=== PATIENT | female | born 1955 | race Caucasian/White ===

== ENCOUNTER 2024-01-13 10:56 | Outpatient (RCR) | payer MEDICARE, OTHER, SELFPAY | END 2024-01-13 23:59 | disposition home or self-care (01) | LOC: RPT 10:56 | PROVIDERS: ATTENDING PHYSICIAN Orthopaedic Surgery; FAMILY PHYSICIAN Family Medicine | DX: M75.42 Impingement syndrome of left shoulder (principal); M79.602 Pain in left arm; M47.812 Spondylosis without myelopathy or radiculopathy, cervical region; M25.512 Pain in left shoulder; M54.12 Radiculopathy, cervical region; Z98.890 Other specified postprocedural states | CPT/HCPCS: 97010; 97110; 97162; 97535 ==

== ENCOUNTER 2024-01-20 12:50 | Outpatient (RCR) | payer MEDICARE, OTHER, SELFPAY | END 2024-01-20 23:59 | disposition home or self-care (01) | LOC: RPT 12:50 | PROVIDERS: ATTENDING PHYSICIAN Orthopaedic Surgery; FAMILY PHYSICIAN Family Medicine | DX: M75.42 Impingement syndrome of left shoulder (principal); M79.602 Pain in left arm; M47.812 Spondylosis without myelopathy or radiculopathy, cervical region; Z98.890 Other specified postprocedural states; M54.12 Radiculopathy, cervical region | CPT/HCPCS: 97010; 97110 ==

== ENCOUNTER → 2024-01-28 18:16 | Outpatient (REF) | payer MEDICARE, OTHER, SELFPAY | LOC: MRI 3T 18:16 | PROVIDERS: ATTENDING PHYSICIAN Orthopaedic Surgery; FAMILY PHYSICIAN Family Medicine | DX: M75.42 Impingement syndrome of left shoulder (principal) | CPT/HCPCS: 73221 ==

== ENCOUNTER → 2024-02-24 06:22 | Outpatient (REF) | payer MEDICARE, OTHER, SELFPAY ==
[2024-02-24 07:52] LABS: Hematocrit 41.2 % (37.0-47.0); Hemoglobin 14.1 g/dL (12.0-16.0); Mean Corp Hgb Conc. 34.2 g/dL (33.0-37.0); Mean Corpuscular Hgb 30.4 pg (27.0-31.0); Mean Corpuscular Volume 88.8 fL (81.0-99.0); Mean Platelet Volume 10.7 fL (7.4-10.4); Platelet Count 193 10^3/uL (130-400); Red Blood Cell Count 4.64 10^6/uL (4.20-5.40); Red Cell Dist. Width 14.1 % (11.5-14.5); White Blood Cell Count 6.1 10^3/uL (4.8-10.8)
[2024-02-24 07:57] LABS: Blood Urea Nitrogen 36 mg/dl (7-17); Calcium 9.9 mg/dl (8.4-10.2); Carbon Dioxide 21 mmol/L (22-30); Chloride 102 mmol/L (98-107); Glucose 108 mg/dl (70-99); Sodium 141 mmol/L (135-145); eGFR > 60.00
== END ==
LOC: SDSPAT 06:22
PROVIDERS: ATTENDING PHYSICIAN Specialist; FAMILY PHYSICIAN Family Medicine
DX: Z01.818 Encounter for other preprocedural examination (principal)
CPT/HCPCS: 36415; 80048; 85027; 93005

== ENCOUNTER 2024-02-27 06:26 | Day surgery (SDC) | payer MEDICARE, OTHER, SELFPAY ==
[2024-02-24 10:02] VITALS: BMI 35.6
[2024-02-27] VITALS (13 sets, daily range): BP systolic 124–192; BP diastolic 71–105; BMI 35.6
[2024-02-27] MEDS: NORMOSOL-R/PLASMALYTE-A 1000 IV (11:29)
[2024-02-27] MEDS: TYLENOL 1000 MG PO (11:30)
[2024-02-27] MEDS: CELEBREX 200 MG PO (11:31)
[2024-02-27] MEDS: TRANDATE 10 MG IV (17:15)
== END 2024-02-27 17:38 | disposition home or self-care (01) ==
LOC: SDS 06:26
PROVIDERS: ATTENDING PHYSICIAN Specialist; FAMILY PHYSICIAN Family Medicine
DX: M75.102 Unspecified rotator cuff tear or rupture of left shoulder, not specified as traumatic (principal); M75.42 Impingement syndrome of left shoulder
CPT/HCPCS: 29827; 29826; C1713

== ENCOUNTER 2024-03-31 07:19 | Emergency (ER) | payer MEDICARE, OTHER, SELFPAY ==
[2024-03-31 07:22] VITALS: BP 195/99
--- NOTE | 2024-03-31 08:14 | ED.GENMED ---
History of Present Illness
General
Chief Complaint: Dental Problem
Source: patient
Exam Limitations: none
Time Seen by Provider: 03/31/24 07:51
Nursing documentation reviewed up to this point in time: agreed with
History of Present Illness
History of Present Illness:
69-year-old female has had a right upper tooth pain for the past several days, saw her dentist yesterday and started on amoxicillin 875 mg twice daily of which she has had a total of 2 doses so far. She presents now with increasing pain and
swelling of the right cheek. States pain is 7/10. Denies difficulty swallowing or breathing. Denies f/c/n/v
Past History
Past History
ED Past Medical History: Cancer (breast CA), Fibromyalgia, GERD and Hypercholesterolemia
ED Past Surgical History: Gynecological and Orthopedic
Social History
Tobacco: Non-smoker
Personal:
Living: with family
Review of Systems
Review of Systems
Allergies reviewed?: Yes
All Other Systems: ROS reviewed and negative except as documented in HPI and ROS
Constitutional: Denies fever or chills
EENT: Reports mouth swelling (upper right gum)
Respiratory: Denies trouble breathing
ABD/GI: Denies nausea or vomiting
Skin: Reports no symptoms
Neurological: Reports no symptoms
Phy Exam
Physical Exam
Physical Exam:
GENERAL: No acute distress. A&Ox3.
CONSTITUTIONAL: Afebrile.
EYES: PERRL, conjunctivae normal
Neck: Supple, no lymphadenopathy
ENMT: moist mucus membranes, Pharynx nl. Palpable abscess left upper gum, swelling left cheek. No trismus
RESPIRATORY: Regular respirations, nonlabored, lungs clear.
CARDIOVASCULAR: Regular rate and rhythm, no murmurs, no rubs.
GI: Soft, nontender
MUSCULOSKELETAL: Moves with ease. Well perfused.
SKIN: Warm, dry, pink
PSYCH: Normal mood and affect. Well kept, interactive and appropriate
NEUROLOGIC: Awake, alert and oriented. No focal neurological deficits
Course
Vital Signs
Initial and Last Documented VS:
Initial Vital Signs
Temp Pulse Resp BP Pulse Ox
98.4 F 96 16 195/99 95
03/31/24 07:22 03/31/24 07:22 03/31/24 07:22 03/31/24 07:22 03/31/24 07:22
Last Documented Vital Signs
Temp Pulse Resp BP Pulse Ox
98.4 F 92 16 137/70 95
03/31/24 07:22 03/31/24 09:07 03/31/24 07:22 03/31/24 09:07 03/31/24 07:22
Procedures
Incision/Drainage/Joint Aspiration
Right upper gum:
Anethesia: 1% Lidocaine with Epi
Type of procedure: incise and drain
Nature of site: abscess
Description of abscess: less than 3cm
How much fluid was obtained?: small amount
Fluid description: purulent
Treatment: left open for drainage
MDM/Problems Addressed
Differential Diagnosis Includes:
tooth infection, abscess
MDM/Problems Addressed:
69-year-old female has had a right upper tooth pain for the past several days, saw her dentist yesterday and started on amoxicillin 875 mg twice daily of which she has had a total of 2 doses so far. She presents now with increasing pain and
swelling of the right cheek. States pain is 7/10. Denies difficulty swallowing or breathing. Denies f/c/n/v
Palpable tender abscess buccal mucosal border above teeth 4 and 5
Pt tolerated I & D well. About 1 ml pus aspirated, small incision made and drained, gauze pressure pads applied. Bleeding stopped by discharge.
BP rechecked by me: 137/70
Will f/u with her dentist
*Critical Care Note
Total Time (30-74mins, 75-104mins- exclusive of procedures): Not Applicable
ED Attending Note
-
Portions of this chart may have been created with voice recognition software.� Occasional wrong word or��sound alike� substitutions may have occurred due to the inherent limitations of voice recognition software.
Discharge Plan
Departure
Patient Disposition: Home (Routine Discharge)
Date of Disposition: 03/31/24
Time of Disposition: 08:42
Patient with high blood pressure during this ER visit?: No
Condition: Good
Discharge Problem:
Dental abscess
Instructions: Tooth Abscess (DC)
Prescriptions:
No Action
cyclobenzaprine 10 mg tablet
10 mg PO QPM
omeprazole 40 mg capsule,delayed release(DR/EC)
40 mg PO DAILY
citalopram 20 mg tablet
20 mg PO DAILY
Medical Marijuana
1 cap PO HSPRN PRN (Reason: sleep,pain)
lorazepam 0.5 mg Tablet
0.5 mg PO BIDPRN PRN (Reason: anxiety)
rosuvastatin 5 mg Tablet
5 mg PO QPM
enalapril maleate 5 mg Tablet
5 mg PO HS
famotidine [Pepcid] 40 mg Tablet
40 mg PO HS
amoxicillin 875 mg Tablet
875 mg PO BID
acetaminophen [Tylenol] 325 mg Tablet
650 mg PO Q4HPRN PRN (Reason: mild pain)
Referrals:
Your, Dentist [Other] - Keep scheduled appt
Lana Gonzalez MD [Family Provider] -
Activity Restrictions/Additional Instructions:
As we discussed, continue your amoxicillin and your next dental appointment.
Rinse and spit with warm salt water 3 times a day for the next 2 days. Rinse and spit with plain water after eating for the next 3 days
Tylenol as needed for pain, return here immediately for increasing swelling, pain, fever or feeling sicker in any way.
Interventions
Interventions:
*Risk Screen - Suicide Last Done: 03/31/24 07:22
*General Assessment Last Done: 03/31/24 07:22
*Neglect/Abuse Screening Last Done: 03/31/24 07:22
ED- Fall Risk Assessment Last Done: 03/31/24 09:10
*ED COVID-19 Vaccine History Last Done: 03/31/24 09:10
*Nursing Disposition Last Done: 03/31/24 09:10
Discharge Date and Time
Discharge Date/Time: 03/31/24 09:11
Print Language: INDIAN
[2024-03-31 09:07] VITALS: BP 137/70
== END 2024-03-31 09:11 | disposition home or self-care (01) ==
LOC: EMR 07:19
PROVIDERS: EMERGENCY PHYSICIAN Student in an Organized Health Care Education/Training Program; FAMILY PHYSICIAN Family Medicine
DX: K04.7 Periapical abscess without sinus (principal); M79.7 Fibromyalgia; E78.00 Pure hypercholesterolemia, unspecified; K21.9 Gastro-esophageal reflux disease without esophagitis
CPT/HCPCS: 99282

== ENCOUNTER 2024-04-15 09:32 | Outpatient (RCR) | payer MEDICARE, OTHER, SELFPAY | END 2024-04-15 23:59 | disposition home or self-care (01) | LOC: RPT 09:32 | PROVIDERS: ATTENDING PHYSICIAN Physician Assistant Surgical; FAMILY PHYSICIAN Family Medicine | DX: M25.512 Pain in left shoulder (principal); Z98.890 Other specified postprocedural states | CPT/HCPCS: 97010; 97110; 97140; 97162; 97535 ==

== ENCOUNTER 2024-05-12 13:07 | Outpatient (RCR) | payer MEDICARE, OTHER, SELFPAY | END 2024-05-12 23:59 | disposition home or self-care (01) | LOC: RPT 13:07 | PROVIDERS: ATTENDING PHYSICIAN Physician Assistant Surgical; FAMILY PHYSICIAN Family Medicine | DX: Z47.89 Encounter for other orthopedic aftercare (principal); M25.512 Pain in left shoulder; Z73.6 Limitation of activities due to disability; M62.81 Muscle weakness (generalized) | CPT/HCPCS: 97010; 97110 ==

== ENCOUNTER → 2024-06-17 13:58 | Outpatient (REF) | payer MEDICARE, OTHER, SELFPAY | LOC: WDC 13:58 | PROVIDERS: ATTENDING PHYSICIAN Nurse Practitioner Primary Care; FAMILY PHYSICIAN Family Medicine | DX: Z12.31 Encounter for screening mammogram for malignant neoplasm of breast (principal) | CPT/HCPCS: 77063; 77067 ==

== ENCOUNTER 2024-07-11 13:04 | Inpatient (IN) | payer MEDICARE, OTHER, SELFPAY ==
[2024-07-11] VITALS (14 sets, daily range): BP systolic 121–215; BP diastolic 53–116; BMI 38.2; BMI 37.6
[2024-07-11 09:48] LABS: Urine Albumin Negative (Neg - Trace); Urine Bilirubin Negative (Negative); Urine Character Clear (Clear); Urine Color Yellow; Urine Glucose Negative (Negative); Urine Ketone Negative (Negative); Urine Leukocyte Trace (Negative); Urine Nitrite Negative (Negative); Urine Occult Blood 1+ (Negative); Urine Urobilinogen Negative (Neg - 1+); Urine pH 6.5 (5.0-9.0)
--- NOTE | 2024-07-11 09:49 | ED.GENMED ---
History of Present Illness
General
Chief Complaint: Change in Mental Status
Source: patient
Time Seen by Provider: 07/11/24 09:20
History of Present Illness
History of Present Illness:
69-year-old female presents to the emergency room with her spouse for evaluation of confusion. Patient evidently woke up this morning at her baseline. The patient and her are preparing to go out to breakfast to meet family. Patient's
walk the dog and when she came back the patient was confused had no idea why she was getting dressed. She had no recollection of a refrigerator being delivered yesterday or why there were other objects around the house. Patient denies headache,
chest pain, focal weakness or focal numbness. Patient is tearful because she realized that she is not remembering these things. No history of any cognitive decline per the patient's . No new medication. Patient does take medication for pain
and uses medical marijuana but denies using any of these things this morning.
Past History
Past History
ED Past Medical History: Cancer (breast CA), Fibromyalgia, GERD and Hypercholesterolemia
ED Past Surgical History: Gynecological and Orthopedic
Social History
Tobacco: Non-smoker
Personal:
Living: with family
Phy Exam
Physical Exam
Physical Exam:
General: Awake, Alert, Oriented X3. No acute distress.
Vitals: unremarkable
Head: Atraumatic
Eyes: Pupils equal, EOMI
Throat: Airway intact, no exudates
Neck: Trachea midline
Lungs: Clear and equal b/l
Heart: Regular rate, no murmurs
Abd: Soft, Nontender, No pulsatile mass
Neuro: Cranial nerves intact, muscle strength equal bilaterally, cerebellar exam normal
Skin: Warm, dry, no rash
Extremities: pulses equal b/l, no edema
Course
Orders/Labs/Results
Orders:
Orders
07/11/24 09:42
Urinalysis Reflex To Culture Urgent
Date Specimen was Collected: 07/11/24
Time Specimen was Collected: 09:41
Urine Microscopic Reflex Cult Urgent
07/11/24 09:49
Electrocardiogram (*1) Stat
Reason for Study: Other
Other Reason for Exam: neuro symptoms
CT Head W/o Iv Contrast Urgent
Comment:
Reason For Exam: altered mental status
Bedside Glucose- Treatment ONCE
Cardiac Monitoring- Treatment ONCE
EKG- Treatment ONCE
07/11/24 Lunch
Regular
At Your Request: Limited Participation
Does patient need a safe tray?: No
07/11/24 10:06
Cardiovascular Evaluation Urgent
Complete Blood Count/With Diff Urgent
Comprehensive Metabolic Panel Urgent
Erythrocyte Sed Rate Urgent
Comment: ADD ON
Ferritin Urgent
Comment: ADD ON
Folate Urgent
Comment: ADD ON
TSH Reflex To Free T4 Urgent
Comment: ADD OD
Vitamin B12 Urgent
Comment: ADD ON
07/11/24 10:45
Labetalol HCl [Trandate] 10 mg IV NOW STA
07/11/24 12:30
Aspirin Enteric Coated 325 mg PO NOW STA
Lorazepam [Ativan] 1 mg PO ONCE ONE
07/11/24 12:31
MR Brain Without Contrast Routine
Comment:
Reason For Exam: ? stroke
Recent pill cam endoscopy?: No
07/11/24 12:47
Admit/Transfer Patient As Directed
Co-Sign Provider:
Level of Care: Inpatient admission
Assign to:: Medical/Surgical
Physician / Group: Ajith Sanchez
Diagnosis: TGA vs Encephalopathy
Reason for Hospitalization: TGA vs Encephalopathy
Expected length of stay greater than two midnights?: Yes
ELOS- Estimated Length of Stay in days: 2
I certify the patient meets the requirements for IP care: Yes
07/11/24 12:48
PRN Pain Medication Management As Directed
May give lesser potent ordered pain med per pt: Yes
preference::
Protocol:: Medication orders for pain may be administered in a
manner that supports deferring to patient preference
when the pt is:
- Requesting an ordered lesser potent pain medication.
Least to most potent pain medications are defined
as: acetaminophen < NSAID < tramadol < opioids
(morphine, oxycodone, hydromorphone).
- Requesting a lesser dose of the same medication IF
ORDERED.
- Requesting a less intrusive route of administration
if both routes are prescribed by the provider (PO <
IV).
07/11/24 12:50
Code Status As Directed
Resuscitation Status: Full Code
07/11/24 13:00
NIFEdipine EXTENDED RELEASE [Procardia Xl (Extended Release)] 30 mg PO DAILY
07/11/24 15:20
Acetaminophen [Tylenol] 650 mg PO Q4HPRN PRN
Bisacodyl [Dulcolax] 10 mg RECTAL [id number] PRN
Docusate W/Senna [Senokot-S] 1 tablet PO BIDPRN PRN
Polyethylene Glycol Powder [Miralax] 17 grams PO DAILYPRN PRN
07/11/24 15:20
Activity As Directed
Activity Level: With Assistance
Pneumatic Compression Sleeves As Directed
Type: Knee high
Vital Signs As Directed
Frequency: Per unit guidelines
DX Deep Vein Thrombosis Video Routine
07/11/24 18:00
Enalapril [Vasotec] 5 mg PO QPM
Rosuvastatin Calcium [Crestor] 5 mg PO QPM
07/11/24 22:00
Famotidine [Pepcid] 40 mg PO HS
07/12/24 06:00
Basic Metabolic Panel IN AM
Complete Blood Count/No Diff IN AM
07/12/24 08:00
Aspirin Low Dose EC [Aspir Low (Enteric Coated)] 81 mg PO DAILY
Citalopram [Celexa] 20 mg PO DAILY
Pantoprazole [Protonix] 40 mg PO DAILY
Abnormal Lab Results
07/11/24 07/11/24 07/11/24
09:42 10:01 10:06
MCHC 31.8 L g/dL
(33.0-37.0)
Immature Gran % 0.6 H %
(0-0.5)
Lymphocytes % 20.3 L %
(20.5-51.1)
Chloride 97 L mmol/L
(98-107)
Carbon Dioxide 31 H mmol/L
(22-30)
BUN 24 H mg/dl
(7-17)
Glucose 140 H mg/dl
(70-99)
Total Cholesterol 207 H mg/dl
(50-199)
Ur Occult Blood Reflex 1+ A
(Negative)
Leukocyte Esterase Rfl Trace A
(Negative)
Urine RBC 3-6 A /HPF
(0-2)
POC Glucose 130 H mg/dl
(70-99)
07/11/24 10:06
07/11/24 10:06
Vital Signs
Initial and Last Documented VS:
Initial Vital Signs
Temp Pulse Resp BP Pulse Ox
97.9 F 90 18 198/116 100
07/11/24 09:13 07/11/24 09:13 07/11/24 09:13 07/11/24 09:13 07/11/24 09:13
Last Documented Vital Signs
Temp Pulse Resp BP Pulse Ox
97.2 F 89 18 138/76 92
07/11/24 15:29 07/11/24 17:39 07/11/24 15:29 07/11/24 17:39 07/11/24 15:29
MDM/Problems Addressed
Differential Diagnosis Includes:
Transient global amnesia, seizure disorder, CVA
MDM/Problems Addressed:
Patient presents with change in mental status and that she was confused and not remembering things that she would normally remember. No focal neurologic deficits on exam here. CT does not show an thing acute. Patient has not returned to her
baseline however. Patient mildly hydrated based on labs.Patient will be hospitalized for further neurologic evaluation and treatment
*Critical Care Note
Total Time (30-74mins, 75-104mins- exclusive of procedures): Not Applicable
ED Attending Note
-
Portions of this chart may have been created with voice recognition software.� Occasional wrong word or��sound alike� substitutions may have occurred due to the inherent limitations of voice recognition software.
Discharge Plan
Departure
Patient Disposition: Admit
Date of Disposition: 07/11/24
Time of Disposition: 11:43
Admit to: Telemetry
Presentation/result/management discussed w/ accepting MD/DO: Hospitalist
Condition: Fair
Discharge Problem:
Acute alteration in mental status, Hypertensive emergency
Interventions
Interventions:
*Risk Screen - Suicide Last Done: 07/11/24 09:13
*General Assessment Last Done: 07/11/24 09:13
*Neglect/Abuse Screening Last Done: 07/11/24 09:13
ED- Fall Risk Assessment Last Done: 07/11/24 09:32
*ED COVID-19 Vaccine History Last Done: 07/11/24 09:32
*Nursing Disposition Last Done: 07/11/24 16:02
ED- Neurological Assessment Last Done: 07/11/24 09:32
ED- Cardiac Assessment Last Done: 07/11/24 09:32
Discharge Date and Time
Discharge Date/Time: 07/11/24 15:30
[2024-07-11 10:04] LABS: Glucose - Point of Care 130 mg/dl (70-99)
[2024-07-11 10:15] LABS: % Basophils 0.8 % (0-2); % Eosinophils 1.6 % (0-6); % Immature Granulocytes 0.6 % (0-0.5); % Lymphocytes 20.3 % (20.5-51.1); % Monocytes 7.2 % (1.7-9.3); % Neutrophils 69.5 % (42.2-75.2); Absolute Basophils 0.1 10^3/uL (0-0.2); Absolute Eosinophils 0.1 10^3/uL (0-0.7); Absolute Lymphocytes 1.3 10^3/uL (1.2-3.4); Absolute Monocytes 0.5 10^3/uL (0.1-0.6); Absolute Neutrophils 4.4 10^3/uL (1.4-6.5); Hematocrit 41.8 % (37.0-47.0); Hemoglobin 13.3 g/dL (12.0-16.0); Mean Corp Hgb Conc. 31.8 g/dL (33.0-37.0); Mean Corpuscular Hgb 28.2 pg (27.0-31.0); Mean Corpuscular Volume 88.7 fL (81.0-99.0); Nucleated Red Blood Cells % 0 %; Platelet Count 212 10^3/uL (130-400); Red Blood Cell Count 4.71 10^6/uL (4.20-5.40); Red Cell Dist. Width 13.7 % (11.5-14.5); White Blood Cell Count 6.4 10^3/uL (4.8-10.8)
[2024-07-11 10:30] LABS: ALT (SGPT) 25 U/L (0-35); AST (SGOT) 28 U/L (14-36); Albumin 4.5 g/dl (3.5-5.0); Alkaline Phosphatase 107 U/L (38-126); Blood Urea Nitrogen 24 mg/dl (7-17); Calcium 9.4 mg/dl (8.4-10.2); Carbon Dioxide 31 mmol/L (22-30); Chloride 97 mmol/L (98-107); Estimated Creatinine Clearance 80 ml/min; Glucose 140 mg/dl (70-99); Potassium 4.5 mmol/L (3.5-5.1); Sodium 135 mmol/L (135-145); Total Bilirubin 0.4 mg/dl (0.2-1.3); Total Protein 7.1 g/dl (6.3-8.2); eGFR > 60.00
[2024-07-11 10:51] LABS: Urine Squamous Cell >30 /LPF (Few)
[2024-07-11 10:52] LABS: Urine Amorphous Seen
[2024-07-11] MEDS: TRANDATE 10 MG IV (10:52)
[2024-07-11 10:53] LABS: Urine White Cell 0-2 /HPF (0-5)
--- NOTE | 2024-07-11 11:51 | CON.NEURO ---
Neuro Assessment/Plan
Assessment
Acute onset change in mental status
With accelerated hypertension and risk factors for stroke including diabetes mellitus type 2 and prior history of myocardial infarction.
Differential diagnosis includes transient global amnesia as well as stroke/TIA based on the above risk factors.
Patient was not a candidate for tenecteplase or intra-arterial thrombectomy due to NIH stroke scale less than 6
Plan
Check MRI of brain for completeness
Reduce blood pressure by approximately 20% and there over the next 24 hours if the patient has had an acute ischemic event
Provide patient with aspirin unless and until patient has no evidence of new ischemic lesion; if no evidence of prior or current ischemic lesion, no need to maintain aspirin
Provide medical educational materials
Consider speech therapy evaluation
Check blood work potential metabolic abnormalities
Check lipid profile, initiate atorvastatin 40 mg if LDL greater than 70
Will follow
Consultation
Order
Date of Consultation: 07/11/24
Requesting Provider: Emergency department physician
Reason for Consult: Change in mental status
Subjective/Objective
Subjective Data
Date of Service: July 11, 2024
Right-Handed
Confusion and lack of recall starting at 0730 today.
Last known normal at 0700.
Associated symptoms of headache at time of arrival to ED. Right frontal intensity 1.5/10, no photophobia, phonophobia, no longer having nausea although she awoke with the same, no emesis.
No prior events.
No falling, didn't miss medications recently.
Repetitive questions present, according to the patient's spouse.
Immediate recall impaired, events from past few days impaired.
Unable recall own age initially. Was significantly hypertensive at time of presentation.
No known modifying factors. Symptoms may have been improving since start.
Objective Data
Vital Signs
Temp Pulse Resp BP Pulse Ox
36.6 C 78 16 150/73 95
07/11/24 09:13 07/11/24 11:00 07/11/24 11:00 07/11/24 11:00 07/11/24 11:00
Lab Results
07/11/24 10:06
07/11/24 10:06
Sodium 135 mmol/L (135-145) 07/11/24 10:06
Potassium 4.5 mmol/L (3.5-5.1) 07/11/24 10:06
BUN 24 mg/dl (7-17) H 07/11/24 10:06
Glucose 140 mg/dl (70-99) H 07/11/24 10:06
Calcium 9.4 mg/dl (8.4-10.2) 07/11/24 10:06
Patient Allergies
latex Allergy (Unknown, Verified 07/11/24 09:13)
Hives-localized
Review of Systems
-
History Source: Patient
All other systems: Reviewed and negative
EENT: Negative Blurry Vision or Swallowing Difficulty
Respiratory: Negative Trouble Breathing
Cardiac: Negative Chest Pain
Abdomen/GI: Negative Incontinence of Stool
Genitourinary: Negative Incontinence
Musculoskeletal: Negative Back Pain or Neck Pain
Neuro: Headache; Negative Dizzy
Physical Exam
-
General: No Apparent Distress and Appears Stated Age
Eyes: OU Absent Papilledema, Round OU, [place] Conjunctivae and No Ptosis
HEENT: Anicteric and Moist Mucous Membranes
Neck: Full Range of Motion
Respiratory: No Dyspnea
Cardiac: No JVD
GI: Non-distended
Skin: Unremarkable
Extremities: No Clubbing, No Cyanosis and No Edema
Psych: Intact Judgement/Insight
Extended Neurological Exam
Mood & Affect: Negative Affect Unremarkable (Tearful)
Attention Span & Concentration: Awake, Alert, Interactive and No Difficulty with 2 Step Request
Memory: Reduced (Full recall of events from prior few minutes); Negative Unable to Recall Personal History
Tremor: Hand Tremor Absent and Head Tremor Absent
Speech: Quality Unremarkable and Quantity Unremarkable
Cranial Nerve II: Left Eye: Pupillary Reactivity Unremarkable, Pupillary Size Unremarkable and Visual Cerrato Intact
Cranial Nerve II: Right Eye: Pupillary Reactivity Unremarkable, Pupillary Size Unremarkable and Visual Cerrato Intact
Cranial Nerves III, IV, : Extraocular Movement: Extraocular Movement Full in all Directions
Cranial Nerve VII: Facial Symmetry: Normal Facial Symmetry
Cranial Nerve VIII: Hearing: Unremarkable Hearing to Normal Conversational Volume
Cranial Nerves IX, X: Palate Movement: Palate Elevation Symmetric
Cranial Nerve XI: Shoulder Shrug: Unremarkable
Cranial Nerve XII: Tongue Protusion: Midline
Muscle Strength, Overall: Full Throughout
Muscle Bulk & Tone: Bulk Unremarkable and Tone Unremarkable
Pronator Drift: No Drift in Upper Extremities
Deep Tendon Reflexes: Unremarkable Throughout
Touch Sensation: Unremarkable
Coordination: [id number] Testing Unremarkable
Babinski Sign: Absent Bilaterally
Data Reviewed
-
CT Head: Report Reviewed
MRI Head: Ordered
Labs: Ordered and Report Reviewed
Lipid Profile: Ordered
Reviewed with: Physician, Patient and Family
Old Records: Summarized
Medications
-
Home Medications
�Medication �Instructions �Recorded
Medical Marijuana 1 cap PO HSPRN PRN sleep,pain 08/29/22
citalopram 20 mg tablet 20 mg PO DAILY 08/29/22
cyclobenzaprine 10 mg tablet 10 mg PO QPM 08/29/22
omeprazole 40 mg capsule,delayed 40 mg PO DAILY 08/29/22
release
enalapril maleate 5 mg tablet 5 mg PO HS 02/23/24
lorazepam 0.5 mg tablet 0.5 mg PO BIDPRN PRN anxiety 02/23/24
rosuvastatin 5 mg tablet 5 mg PO QPM 02/23/24
acetaminophen 325 mg tablet 650 mg PO Q4HPRN PRN mild pain 03/31/24
(Tylenol)
amoxicillin 875 mg tablet 875 mg PO BID 03/31/24
famotidine 40 mg tablet (Pepcid) 40 mg PO HS 03/31/24
Past History
Past History
ED Past Medical History: Cancer (breast CA), Fibromyalgia, GERD, HTN, Hypercholesterolemia, NIDDM, Psychiatric (Generalized anxiety disorder) and Other (Gastric ulcer, morbid obesity)
ED Past Surgical History: Gynecological and Orthopedic (Right arm and foot fractures)
Social History
Tobacco: Non-smoker
Personal:
Living: with family
[2024-07-11] MEDS: ASPIRIN ENTERIC COATED 325 MG PO (12:47)
[2024-07-11] MEDS: ATIVAN 1 MG PO (12:51)
--- NOTE | 2024-07-11 12:54 | HPS.HSE ---
Family Physician
-
Family Physician: Lana Gonzalez
Chief Complaint
-
Confusion/problems with memory
History of Present Illness
Patient is a 69-year-old female with past medical history of essential hypertension, anxiety/depression/GERD came to ER with new onset of confusion and problems with memory starting to morning today. Patient was in usual state of health until when
patient woke up around 7:30 AM was noted to having confusion. Patient having difficulty remembering things and continue to repeat questions. No focal neurological deficits reported. No reported fever. No previous history of stroke or similar
change in past.
No previous history of stroke or similar issues in the past.
Patient was noted to be hypertensive in ER with systolic blood pressure in 200 range. No reported chest pain/abdominal pain/nausea. Does have headache.
Medical History
Past Medical History
Past Medical History: Reports Other
Additional Past Medical History:
essential hypertension, anxiety/depression/GERD
Past Surgical History: Reports Other
Social History
Tobacco: Former Smoker
Alcohol: None
Drug: Marijuana (Medical marijuana)
Family History
Family History: Not pertinent
Allergies / Home Medications
Allergies reflects when Allergies were last updated in [employer].
Home Medications with original date entered in [employer]
Allergy/Medication List:
Allergies
Allergy/AdvReac Type Severity Reaction Status Date / Time
latex Allergy Unknown Hives-local Verified 07/11/24 09:13
ized
Home Medications
Medical Marijuana 1 cap PO HSPRN PRN sleep,pain 08/29/22
citalopram 20 mg tablet 20 mg PO DAILY 08/29/22
cyclobenzaprine 10 mg tablet 10 mg PO QPM 08/29/22
enalapril maleate 5 mg tablet 5 mg PO QPM 02/23/24
lorazepam 0.5 mg tablet 0.5 mg PO BIDPRN PRN anxiety 02/23/24
rosuvastatin 5 mg tablet 5 mg PO QPM 02/23/24
famotidine 40 mg tablet (Pepcid) 40 mg PO HS 03/31/24
dexlansoprazole 60 mg capsule,biphase delayed release 60 mg PO DAILY 07/11/24
Review of Systems
-
A 12 point ROS was completed and negative except as noted: Yes
Physical Exam
Vital Signs
Vital Signs
Temp Pulse Resp BP Pulse Ox
97.9 F 88 18 166/71 99
07/11/24 09:13 07/11/24 12:15 07/11/24 12:15 07/11/24 12:00 07/11/24 12:15
Physical Exam
General: No Apparent Distress
HEENT: NormoCephalic, Moist mucous membranes and Atraumatic
Respiratory: Clear
Cardiac: S1/S2 and Regular Rhythm; No Murmur or Rub
GI: Soft, Non Tender, Non Distended and Normal Bowel Sounds; No Organomegaly
Musculoskeletal: No Clubbing, No Cyanosis and No Edema
Skin: No Rash
Neuro: Awake, Alert and Nonfocal/grossly intact
Laboratory Results
-
07/11/24 10:06
07/11/24 10:06
Laboratory Results
Total Bilirubin 0.4 mg/dl (0.2-1.3) 07/11/24 10:06
AST 28 U/L (14-36) 07/11/24 10:06
ALT 25 U/L (0-35) 07/11/24 10:06
Alkaline Phosphatase 107 U/L (38-126) 07/11/24 10:06
Impression/Plan
-
1. Acute metabolic encephalopathy
Suspected episode of transient global amnesia versus hypertensive encephalopathy
-Patient came in for having issues with memory starting early in the morning after waking
-No focal neurological deficits noted
-CT head without any acute abnormality
-MRI brain without contrast ordered
-Neurology evaluated patient in the ER
-Patient significantly hypertensive and possibly hypertensive encephalopathy also playing
-UA negative
-Avoid sedative medication as possible
-Use medical marijuana check urine drug screen
2. Hypertensive emergency
-Suspected encephalopathy secondary to hypertension component as well
-Patient takes enalapril 5 mg at evening
-Starting procardia 30mg/d
3. History of marijuana use
-Check urine drug screen
Hyperlipidemia
Gastroesophageal reflux disease
Depression/anxiety
Full code
SCD
Total time spent : 76 mins
I personally saw and examined the patient.
I have reviewed all diagnostic interpretations and treatment plans as written.
Time includes patient management by me, time spent at the patients bedside, time to review lab and imaging results, discussing patient care, documentation in the medical record, and time spent with the family or caregiver and discussing care plan
with RN/Consultants.
[2024-07-11] MEDS: PROCARDIA XL (EXTENDED RELEASE) PO (13:54)
[2024-07-11 15:04] LABS: Erythrocyte Sed Rate 12 mm/hour (0-20)
[2024-07-11 15:09] LABS: HDL Cholesterol 88 mg/dl; LDL Cholesterol, Calculated 99 mg/dl; Total Cholesterol 207 mg/dl (50-199); Triglyceride 100 mg/dl (10-149); Very Low Density Lipoprotein 20 mg/dl (0-30)
[2024-07-11] MEDS: PROCARDIA XL (EXTENDED RELEASE) 30 MG PO (16:10)
--- NOTE | 2024-07-11 16:23 | PTCARENOTE ---
Pt was received from ED. Pt ambulated to the room with supervision. Pt is AAOx3, flushed in the face, BP elevated. Procardia ordered and administered. Pt resting in bed, at the bedside. Pt ordering dinner. Bed alarm in use.
--- NOTE | 2024-07-11 16:38 | PTCARENOTE ---
No need to do NIHSS on this pt per Dr Sanchez.
[2024-07-11 16:43] LABS: Ferritin 65.3 ng/ml (11.1-264.0)
[2024-07-11 17:15] LABS: Folate 10.4 ng/ml (2.76-20); Vitamin B12 328 pg/ml (239-931)
[2024-07-11] MEDS: VASOTEC 5 MG PO (17:39)
[2024-07-11] MEDS: CRESTOR 5 MG PO (17:39)
[2024-07-11] MEDS: PEPCID 40 MG PO (20:12)
[2024-07-11] MEDS: TYLENOL 650 MG PO (20:13)
[2024-07-11 21:02] LABS: Amphetamines Negative (Negative); Barbiturates Negative (Negative); Benzodiazepines Positive (Negative); Buprenorphine Negative (Negative); Cocaine Negative (Negative); Marijuana Positive (Negative); Methadone Negative (Negative); Methamphetamines Negative (Negative); Opiates Negative (Negative); Phencyclidine Negative (Negative); Tricyclic Antidepressants Negative (Negative)
[2024-07-11 21:20] LABS: Fentanyl, Urine Negative (Negative)
[2024-07-12 07:41] LABS: Hematocrit 41.4 % (37.0-47.0); Hemoglobin 13.7 g/dL (12.0-16.0); Mean Corp Hgb Conc. 33.1 g/dL (33.0-37.0); Mean Corpuscular Hgb 28.8 pg (27.0-31.0); Mean Platelet Volume 10.4 fL (7.4-10.4); Platelet Count 212 10^3/uL (130-400); Red Blood Cell Count 4.76 10^6/uL (4.20-5.40); White Blood Cell Count 6.5 10^3/uL (4.8-10.8)
[2024-07-12 08:11] LABS: Blood Urea Nitrogen 20 mg/dl (7-17); Calcium 9.3 mg/dl (8.4-10.2); Carbon Dioxide 28 mmol/L (22-30); Chloride 99 mmol/L (98-107); Estimated Creatinine Clearance 79 ml/min; Glucose 134 mg/dl (70-99); Sodium 136 mmol/L (135-145); eGFR > 60.00
[2024-07-12 08:19] LABS: Potassium 4.4 mmol/L (3.5-5.1)
[2024-07-12] MEDS: PROCARDIA XL (EXTENDED RELEASE) 30 MG PO (08:20)
[2024-07-12] MEDS: PROTONIX 40 MG PO (08:21)
[2024-07-12] MEDS: CELEXA 20 MG PO (08:21)
[2024-07-12] MEDS: ASPIR LOW (ENTERIC COATED) 81 MG PO (08:21)
[2024-07-12 08:32] VITALS: BP 151/80
[2024-07-12] MEDS: TYLENOL 650 MG PO (11:44)
--- NOTE | 2024-07-12 13:26 | W.PN.HOSP.TC ---
Today's Communication/Plan
-
symptoms resolved
f/u pcp, neurology outpt
increase crestor, add procardia
Assessment / Plan
Assessment / Plan
Physical Exam
General: No Apparent Distress
HEENT: NormoCephalic, Moist mucous membranes and Atraumatic
Respiratory: Clear
Cardiac: S1/S2 and Regular Rhythm; No Murmur or Rub
GI: Soft, Non Tender, Non Distended and Normal Bowel Sounds; No Organomegaly
Musculoskeletal: No Clubbing, No Cyanosis and No Edema
Skin: No Rash
Neuro: Awake, Alert and Nonfocal/grossly intact
#Acute metabolic encephalopathy, resolved
- Suspected episode of transient global amnesia versus hypertensive encephalopathy
-Patient came in for having issues with memory starting early in the morning after waking
-No focal neurological deficits noted
-CT head without any acute abnormality
-MRI brain unremarkable
-Neurology evaluated -f/u outpt
--UA negative
-Avoid sedative medication as possible
-Use medical marijuana check urine drug screen
-increase crestor to 10mg
#Hypertensive emergency
-Suspected encephalopathy secondary to hypertension component as well
-Patient takes enalapril 5 mg at evening
-Starting procardia 30mg/d
#History of marijuana use
-
Hyperlipidemia - increase crestor to 10mg daily
Gastroesophageal reflux disease
Depression/anxiety
More than 30 minutes spent in discharge including
Final examination of the patient
Summarizing hospital stay
Instructions for continuing care to all relevant caregivers
Preparation of discharge records, prescriptions, and referral forms
Total time spent (36 in minutes):
Anticipated Discharge: Today
Subjective/Interval History
-
Date of Service: July 12, 2024
Patient's mental status back to baseline
Objective Data
-
Labs:
Laboratory Results
07/12/24
06:46
WBC 6.5
Hgb 13.7
Hct 41.4
Plt Count 212
Sodium 136
Potassium 4.4
Chloride 99
Carbon Dioxide 28
BUN 20 H
Creatinine 0.7
Glucose 134 H
Calcium 9.3
Vital Signs:
Vital Signs
Temp Pulse Resp BP Pulse Ox
97.5 F 92 18 151/80 98
07/12/24 08:32 07/12/24 08:32 07/12/24 08:32 07/12/24 08:32 07/12/24 08:32
I&O
07/11/24 07/12/24 07/13/24
06:59 06:59 06:59
Intake Total 480 / 480
Output Total 600 / 600
Balance -120 / -120
Review of Systems
-
History Source: Patient
All other systems: Not reviewed unless documented
Data Reviewed
-
CT Scan: Report Reviewed by me
MRI: Report Reviewed by me
Labs: Labs Reviewed by me
--- NOTE | 2024-07-12 13:28 | W.DS.TRANS ---
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
-
Discharge Instructions:
Discharge Diagnosis/Procedures transient global amnesia
Diet Low Cholesterol,Low Fat
Activity As tolerated
Driving Restrictions Not until seen by your Dr
Blood Work cbc and bmp in 1 week with pcp
Instructions:
Stand-Alone Forms:
Changes to Home Medications: Yes
Discharge Medications:
DC Medications w/original date entered in [facility]
Medical Marijuana 1 cap PO HSPRN PRN sleep,pain 08/29/22
citalopram 20 mg tablet 20 mg PO DAILY Mental Health/Anxiety 08/29/22
cyclobenzaprine 10 mg tablet 10 mg PO QPM Muscle Spasms 08/29/22
enalapril maleate 5 mg tablet 5 mg PO QPM Blood Pressure 02/23/24
lorazepam 0.5 mg tablet 0.5 mg PO BIDPRN PRN anxiety 02/23/24
famotidine 40 mg tablet (Pepcid) 40 mg PO HS Gastrointestinal Issue 03/31/24
dexlansoprazole 60 mg capsule,biphase delayed release 60 mg PO DAILY Gastrointestinal Issue 07/11/24
nifedipine 30 mg tablet,extended release 30 mg PO DAILY 30 days #30 tabs 07/12/24
rosuvastatin 5 mg tablet 10 mg (2 x 5 mg) PO QPM High Cholesterol 30 days #60 tabs 07/12/24
Home Medication Changes
nifedipine 30 mg tablet,extended release 30 mg PO DAILY 30 days #30 tabs 07/12/24
rosuvastatin 5 mg tablet 10 mg (2 x 5 mg) PO QPM High Cholesterol 30 days #60 tabs 07/12/24
Pending Results: No
[2024-07-12 13:37] VITALS: BP 149/78; BP 161/74; PULSE 90; O2SAT 98
--- NOTE | 2024-07-12 13:46 | PTOTSP ---
PATIENT MOBILIZING INDEPENDENTLY ON LEVEL SURFACES WELL ELEVATIONS WITHOUT A DEVICE REQUIRING NO FURTHER ACUTE CARE SKILLED P.T. AT THIS TIME. RN AWARE. WILL DISCHARGE FROM P.T. SERVICES.
--- NOTE | 2024-07-12 13:51 | PTCARENOTE ---
Reviewed discharge instructions with patient. Patient verbalizes understanding of teaching and denies questions at this time. IV removed. Patient left via wheelchair with staff escort. to transport patient home.
--- NOTE | 2024-07-12 14:36 | CM ---
Alert awake oriented patient who lives with her spouse Sindi in a ranch story home with 4 steps to enter and bed/bathroom on first floor. She is independent in activates of daily living.She does drive .No adaptive devices.Offered VN she declined.
No VN in past . No SNF hx
Pharmacy [facility]
PCP Dr Gonzalez
PLAN Home with no needs
== END 2024-07-12 14:27 | disposition home or self-care (01) | DRG 70 ==
LOC: 4 EAST ACU 13:04
PROVIDERS: ADMITTING PHYSICIAN Hospitalist; ATTENDING PHYSICIAN Internal Medicine; EMERGENCY PHYSICIAN Emergency Medicine; FAMILY PHYSICIAN Family Medicine; OTHER PHYSICIAN Psychiatry & Neurology Neurology
DX: G45.4 Transient global amnesia (principal); G93.41 Metabolic encephalopathy; I16.1 Hypertensive emergency; I10 Essential (primary) hypertension; F32.A Depression, unspecified; F41.1 Generalized anxiety disorder; E78.00 Pure hypercholesterolemia, unspecified; K21.9 Gastro-esophageal reflux disease without esophagitis; E11.9 Type 2 diabetes mellitus without complications; E66.01 Morbid (severe) obesity due to excess calories; I25.2 Old myocardial infarction; Z87.891 Personal history of nicotine dependence; Z79.899 Other long term (current) drug therapy; Z68.38 Body mass index [BMI] 38.0-38.9, adult
CPT/HCPCS: 70450; 70551; 80048; 80053; 80061; 80306; 80307; 81003; 81015; 82607; 82728; 82746; 82962; 84443; 85025; 85027; 85652; 93005; 96374; 97116; 97162; 99285

== ENCOUNTER → 2024-08-20 06:26 | Outpatient (REF) | payer MEDICARE, OTHER, SELFPAY | LOC: RAD 06:26 | PROVIDERS: ATTENDING PHYSICIAN Psychiatry & Neurology Neurology; FAMILY PHYSICIAN Family Medicine | DX: G93.40 Encephalopathy, unspecified (principal); G45.9 Transient cerebral ischemic attack, unspecified | CPT/HCPCS: 93880 ==

== ENCOUNTER 2025-02-10 06:22 | Day surgery (SDC) | payer MEDICARE, OTHER, SELFPAY | END 2025-02-10 14:12 | disposition home or self-care (01) | LOC: GI 06:22 | PROVIDERS: ATTENDING PHYSICIAN Internal Medicine; FAMILY PHYSICIAN Family Medicine | DX: R13.10 Dysphagia, unspecified (principal); K44.9 Diaphragmatic hernia without obstruction or gangrene; K31.7 Polyp of stomach and duodenum; K31.89 Other diseases of stomach and duodenum; Q40.2 Other specified congenital malformations of stomach | CPT/HCPCS: 43249; 43239; 88305; 88342 ==